=== PATIENT | male | born 1970 | race African-American/Black ===

== ENCOUNTER 2022-08-24 15:20 | Inpatient (IN) | payer OTHER ==
[2022-08-24 15:49] VITALS: BMI 25.0
[2022-08-24] MEDS ORDERED: BENZOCAINE/MENTHOL (CHLORASEPTIC ) LOZENGE MM PRN (17:59)
[2022-08-24] MEDS ORDERED: NICOTINE 10 MG CARTRIDGE (INHALER) IH PRN (17:59)
[2022-08-24] MEDS ORDERED: BISMUTH SUBSALICYLATE 524 MG/30 ML PO PRN (17:59)
[2022-08-24] MEDS ORDERED: LOPERAMIDE HCL 2 MG CAPSULE PO PRN (17:59)
[2022-08-24] MEDS ORDERED: DICYCLOMINE HCL 10 MG CAPSULE PO PRN (17:59)
[2022-08-24] MEDS ORDERED: ONDANSETRON *ODT* 4 MG TABLET SL PRN (17:59)
[2022-08-24] MEDS ORDERED: IBUPROFEN 600 MG TABLET (FP) PO PRN (17:59)
[2022-08-24] MEDS ORDERED: MAGNESIUM CITRATE 300 ML BOTTLE PO PRN (17:59)
[2022-08-24] MEDS ORDERED: IBUPROFEN 400 MG TABLET (FP) PO PRN (17:59)
[2022-08-24] MEDS ORDERED: MAG HYDROX/AL HYDROX/SIMETH 30 ML UNIT-DOSE CUP PO PRN (17:59)
[2022-08-24] MEDS ORDERED: ACETAMINOPHEN 325 MG TABLET (FP) PO PRN ×2 (17:59)
[2022-08-24] MEDS ORDERED: NALOXONE HCL (KLOXXADO) 8 MG SPRAY NS PRN (17:59)
[2022-08-24] MEDS ORDERED: MAGNESIUM HYDROX 2400MG/30ML ORAL SUSPENSION 30 ML CUP PO PRN (17:59)
[2022-08-24] MEDS: hydrOXYzine PAMOATE 25 MG CAPSULE (FP) PO PRN (18:45)
[2022-08-24] MEDS ORDERED: hydrOXYzine PAMOATE 25 MG CAPSULE (FP) PO ONE (18:47)
[2022-08-24] MEDS ORDERED: chlordiazePOXIDE HCL 25 MG CAPSULE ONE (18:49)
[2022-08-24] MEDS: chlordiazePOXIDE HCL 25 MG CAPSULE PO PRN (18:53)
[2022-08-24] MEDS ORDERED: amLODIPine BESYLATE 5 MG TABLET (FP) PO ONE (19:20)
[2022-08-24] MEDS ORDERED: INSULIN SLIDING SCALE (NOVOLOG) 1 VIAL SQ SCH (22:00)
[2022-08-24] MEDS ORDERED: MELATONIN 5 MG TABLETS PO SCH (22:00)
[2022-08-24] MEDS: THIAMINE HCL 100 MG TABLET (FP) PO SCH (22:34)
[2022-08-24] MEDS: levETIRAcetam 500 MG TABLET (FP) PO SCH (22:34)
[2022-08-24] MEDS: chlordiazePOXIDE HCL 25 MG CAPSULE PO SCH (22:36)
[2022-08-25] MEDS: chlordiazePOXIDE HCL 25 MG CAPSULE PO SCH ×4 (05:21→22:29)
[2022-08-25] MEDS: levETIRAcetam 500 MG TABLET (FP) PO SCH ×2 (10:05→22:29)
[2022-08-25] MEDS: PRENATAL VITAMINS W/ FOLIC ACID TABLET (FP) PO SCH (10:05)
[2022-08-25] MEDS: amLODIPine BESYLATE 5 MG TABLET (FP) PO SCH (10:06)
[2022-08-25 12:01] LABS: HEMATOCRIT 32.4 % (35.4-49); HEMOGLOBIN 10.7 GM/dL (11.7-16.9); MEAN CELL VOLUME 90.7 fl (80-96); PLATELET COUNT 134 10^3/uL (134-434); RBC 3.57 M/mm3 (4.00-5.60); RDW 15.2 % (11.9-15.9); WHITE BLOOD COUNT 4.3 K/mm3 (4.0-10.0)
[2022-08-25 12:09] LABS: ALBUMIN 3.6 g/dl (3.4-5.0); BLOOD UREA NITROGEN 6.4 mg/dL (7-18); CREATININE 0.7 mg/dL (0.55-1.3)
[2022-08-25 12:12] LABS: BILIRUBIN,TOTAL 0.4 mg/dL (0.2-1); TOT PROT 7.6 g/dl (6.4-8.2)
[2022-08-25] MEDS: hydrOXYzine PAMOATE 25 MG CAPSULE (FP) PO PRN (15:30)
[2022-08-25] MEDS: chlordiazePOXIDE HCL 25 MG CAPSULE PO PRN (15:30)
[2022-08-25] MEDS: THIAMINE HCL 100 MG TABLET (FP) PO SCH (22:28)
[2022-08-25] MEDS: SUVOREXANT 10 MG TABLET PO PRN (22:31)
[2022-08-26] MEDS: chlordiazePOXIDE HCL 25 MG CAPSULE PO SCH ×4 (05:22→22:16)
[2022-08-26] MEDS: PRENATAL VITAMINS W/ FOLIC ACID TABLET (FP) PO SCH (10:24)
[2022-08-26] MEDS: amLODIPine BESYLATE 5 MG TABLET (FP) PO SCH (10:25)
[2022-08-26] MEDS: levETIRAcetam 500 MG TABLET (FP) PO SCH ×2 (10:25→22:15)
[2022-08-26] MEDS: hydrOXYzine PAMOATE 25 MG CAPSULE (FP) PO PRN ×2 (14:26→22:17)
[2022-08-26] MEDS: chlordiazePOXIDE HCL 25 MG CAPSULE PO PRN (14:26)
[2022-08-26] MEDS: THIAMINE HCL 100 MG TABLET (FP) PO SCH (22:15)
[2022-08-27] MEDS ORDERED: chlordiazePOXIDE HCL 10 MG CAPSULE PO PRN
[2022-08-27] MEDS: chlordiazePOXIDE HCL 10 MG CAPSULE PO SCH ×4 (05:36→22:11)
[2022-08-27] MEDS: METHOCARBAMOL 500 MG TABLET PO PRN (10:03)
[2022-08-27] MEDS: hydrOXYzine PAMOATE 25 MG CAPSULE (FP) PO PRN ×2 (10:03→22:13)
[2022-08-27] MEDS: PRENATAL VITAMINS W/ FOLIC ACID TABLET (FP) PO SCH (10:03)
[2022-08-27] MEDS: levETIRAcetam 500 MG TABLET (FP) PO SCH ×2 (10:03→22:11)
[2022-08-27] MEDS: amLODIPine BESYLATE 5 MG TABLET (FP) PO SCH (10:04)
[2022-08-27] MEDS ORDERED: levETIRAcetam 250 MG TABLET PO ONE (20:55)
[2022-08-27] MEDS: THIAMINE HCL 100 MG TABLET (FP) PO SCH (22:12)
[2022-08-27] MEDS: SUVOREXANT 10 MG TABLET PO PRN (22:12)
[2022-08-28] MEDS: chlordiazePOXIDE HCL 10 MG CAPSULE PO SCH ×2 (05:36→17:14)
[2022-08-28] MEDS ORDERED: levETIRAcetam 250 MG TABLET PO ONE (09:30)
[2022-08-28] MEDS: PRENATAL VITAMINS W/ FOLIC ACID TABLET (FP) PO SCH (10:14)
[2022-08-28] MEDS: levETIRAcetam 500 MG TABLET (FP) PO SCH ×2 (10:15→21:52)
[2022-08-28] MEDS: METHOCARBAMOL 500 MG TABLET PO PRN (10:15)
[2022-08-28] MEDS: amLODIPine BESYLATE 5 MG TABLET (FP) PO SCH (10:15)
[2022-08-28] MEDS: hydrOXYzine PAMOATE 25 MG CAPSULE (FP) PO PRN (10:15)
[2022-08-28] MEDS: LACTULOSE 20 GM/30 ML UDC (FOR ORAL USE ONLY) PO SCH ×3 (13:47→21:52)
[2022-08-28] MEDS: THIAMINE HCL 100 MG TABLET (FP) PO SCH (21:52)
[2022-08-28] MEDS ORDERED: SUVOREXANT 10 MG TABLET PO PRN (22:00)
[2022-08-29] MEDS ORDERED: chlordiazePOXIDE HCL 10 MG CAPSULE PO ONE (05:00)
[2022-08-29 09:13] VITALS: TEMP 97.6
[2022-08-29] MEDS: LACTULOSE 20 GM/30 ML UDC (FOR ORAL USE ONLY) PO SCH (10:17)
[2022-08-29] MEDS: levETIRAcetam 500 MG TABLET (FP) PO SCH (10:18)
[2022-08-29] MEDS: METHOCARBAMOL 500 MG TABLET PO PRN (10:18)
[2022-08-29] MEDS: hydrOXYzine PAMOATE 25 MG CAPSULE (FP) PO PRN (10:18)
[2022-08-29] MEDS: amLODIPine BESYLATE 5 MG TABLET (FP) PO SCH (10:18)
[2022-08-29] MEDS: PRENATAL VITAMINS W/ FOLIC ACID TABLET (FP) PO SCH (10:18)
[2022-08-29 13:13] VITALS: BP 148/86; PULSE 115; RESP 18
== END 2022-08-29 13:32 | disposition other institution (70) | DRG 775 ==
LOC: YASAS 15:20 → Y6N 18:39
PROVIDERS: ADMIT Allergy & Immunology; ATTEND Surgery
PROC: HZ2ZZZZ Detoxification Services for Substance Abuse Treatment (ICD-10-PCS; principal; 2022-08-24)
DX: F10.230 Alcohol dependence with withdrawal, uncomplicated (principal); F10.282 Alcohol dependence with alcohol-induced sleep disorder; F41.9 Anxiety disorder, unspecified; F32.A Depression, unspecified; F43.10 Post-traumatic stress disorder, unspecified; G40.909 Epilepsy, unspecified, not intractable, without status epilepticus; I10 Essential (primary) hypertension; M54.50 Low back pain, unspecified; G89.29 Other chronic pain; R73.9 Hyperglycemia, unspecified; R79.89 Other specified abnormal findings of blood chemistry; R73.03 Prediabetes; Z87.891 Personal history of nicotine dependence
CPT/HCPCS: 36415; 80053; 82140; 82310; 82962; 84520; 85027; 86780; C9803-CS; U0003; U0005

== ENCOUNTER 2022-08-29 12:54 | Inpatient (IN) | payer OTHER ==
[2022-08-29] MEDS ORDERED: MAGNESIUM HYDROX 2400MG/30ML ORAL SUSPENSION 30 ML CUP PO PRN (15:45)
[2022-08-29] MEDS ORDERED: MAGNESIUM CITRATE 300 ML BOTTLE PO PRN (15:45)
[2022-08-29] MEDS ORDERED: BENZOCAINE/MENTHOL (CHLORASEPTIC ) LOZENGE MM PRN (15:45)
[2022-08-29] MEDS ORDERED: P-EPHED 60MG/TRIPROLIDI 2.5MG TABLET PO PRN (15:45)
[2022-08-29] MEDS ORDERED: MAG HYDROX/AL HYDROX/SIMETH 30 ML UNIT-DOSE CUP PO PRN (15:45)
[2022-08-29] MEDS ORDERED: ACETAMINOPHEN 325 MG TABLET (FP) PO PRN (15:45)
[2022-08-29] MEDS ORDERED: LOPERAMIDE HCL 2 MG CAPSULE PO PRN (15:45)
[2022-08-29] MEDS ORDERED: guaiFENesin 200 MG/10 ML 10 ML UNIT-DOSE CUPS PO PRN (15:45)
[2022-08-29] MEDS: LACTULOSE 20 GM/30 ML UDC (FOR ORAL USE ONLY) PO SCH ×2 (17:16→21:10)
[2022-08-29] MEDS: MELATONIN 5 MG TABLETS PO SCH (21:10)
[2022-08-29] MEDS: levETIRAcetam 250 MG TABLET PO SCH (21:10)
[2022-08-29] MEDS: THIAMINE HCL 100 MG TABLET (FP) PO SCH (21:10)
[2022-08-30 07:10] VITALS: RESP 18
[2022-08-30] MEDS: amLODIPine BESYLATE 5 MG TABLET (FP) PO SCH (09:44)
[2022-08-30] MEDS: FOLIC ACID 1 MG TABLET (FP) PO SCH (09:44)
[2022-08-30] MEDS: LACTULOSE 20 GM/30 ML UDC (FOR ORAL USE ONLY) PO SCH ×4 (09:44→21:33)
[2022-08-30] MEDS: THIAMINE HCL 100 MG TABLET (FP) PO SCH ×2 (09:44→21:32)
[2022-08-30] MEDS: levETIRAcetam 250 MG TABLET PO SCH ×2 (09:45→21:33)
[2022-08-30] MEDS: PRENATAL VITAMINS W/ FOLIC ACID TABLET (FP) PO SCH (09:45)
[2022-08-30] MEDS ORDERED: PNEUMOC 20-VAL CONJ-DIP CRM/PF 0.5 ML SYRINGE IM ONE (12:00)
[2022-08-30] MEDS: IBUPROFEN 400 MG TABLET (FP) PO PRN (12:46)
[2022-08-30] MEDS: MELATONIN 5 MG TABLETS PO SCH (21:32)
[2022-08-31] MEDS: FERROUS SO4 325 MG TABLET (FP) PO SCH (10:17)
[2022-08-31] MEDS: LACTULOSE 20 GM/30 ML UDC (FOR ORAL USE ONLY) PO SCH ×4 (10:17→21:52)
[2022-08-31] MEDS: PRENATAL VITAMINS W/ FOLIC ACID TABLET (FP) PO SCH (10:17)
[2022-08-31] MEDS: levETIRAcetam 250 MG TABLET PO SCH ×2 (10:17→21:51)
[2022-08-31] MEDS: FOLIC ACID 1 MG TABLET (FP) PO SCH (10:17)
[2022-08-31] MEDS: amLODIPine BESYLATE 5 MG TABLET (FP) PO SCH (10:18)
[2022-08-31] MEDS: THIAMINE HCL 100 MG TABLET (FP) PO SCH ×2 (10:18→21:52)
[2022-08-31] MEDS: IBUPROFEN 400 MG TABLET (FP) PO PRN (14:46)
[2022-08-31] MEDS: MELATONIN 5 MG TABLETS PO SCH (21:52)
[2022-09-01] MEDS: levETIRAcetam 250 MG TABLET PO SCH ×2 (10:25→21:30)
[2022-09-01] MEDS: PRENATAL VITAMINS W/ FOLIC ACID TABLET (FP) PO SCH (10:25)
[2022-09-01] MEDS: FERROUS SO4 325 MG TABLET (FP) PO SCH (10:25)
[2022-09-01] MEDS: THIAMINE HCL 100 MG TABLET (FP) PO SCH ×2 (10:25→21:30)
[2022-09-01] MEDS: FOLIC ACID 1 MG TABLET (FP) PO SCH (10:25)
[2022-09-01] MEDS: LACTULOSE 20 GM/30 ML UDC (FOR ORAL USE ONLY) PO SCH ×4 (10:25→21:30)
[2022-09-01] MEDS: amLODIPine BESYLATE 5 MG TABLET (FP) PO SCH (10:25)
[2022-09-01] MEDS: IBUPROFEN 400 MG TABLET (FP) PO PRN (18:02)
[2022-09-01] MEDS: MELATONIN 5 MG TABLETS PO SCH (21:30)
[2022-09-02] MEDS: PRENATAL VITAMINS W/ FOLIC ACID TABLET (FP) PO SCH (10:00)
[2022-09-02] MEDS: FOLIC ACID 1 MG TABLET (FP) PO SCH (10:00)
[2022-09-02] MEDS: LACTULOSE 20 GM/30 ML UDC (FOR ORAL USE ONLY) PO SCH ×4 (10:00→21:26)
[2022-09-02] MEDS: amLODIPine BESYLATE 5 MG TABLET (FP) PO SCH (10:00)
[2022-09-02] MEDS: FERROUS SO4 325 MG TABLET (FP) PO SCH (10:00)
[2022-09-02] MEDS: THIAMINE HCL 100 MG TABLET (FP) PO SCH ×2 (10:01→21:26)
[2022-09-02] MEDS: levETIRAcetam 250 MG TABLET PO SCH ×2 (10:01→21:26)
[2022-09-02] MEDS: MELATONIN 5 MG TABLETS PO SCH (21:26)
[2022-09-03] MEDS: FOLIC ACID 1 MG TABLET (FP) PO SCH (09:47)
[2022-09-03] MEDS: amLODIPine BESYLATE 5 MG TABLET (FP) PO SCH (09:47)
[2022-09-03] MEDS: LACTULOSE 20 GM/30 ML UDC (FOR ORAL USE ONLY) PO SCH ×4 (09:47→21:13)
[2022-09-03] MEDS: PRENATAL VITAMINS W/ FOLIC ACID TABLET (FP) PO SCH (09:47)
[2022-09-03] MEDS: FERROUS SO4 325 MG TABLET (FP) PO SCH (09:47)
[2022-09-03] MEDS: levETIRAcetam 250 MG TABLET PO SCH ×2 (09:48→21:13)
[2022-09-03] MEDS: THIAMINE HCL 100 MG TABLET (FP) PO SCH ×2 (09:49→21:13)
[2022-09-03] MEDS: MELATONIN 5 MG TABLETS PO SCH (21:13)
[2022-09-04] MEDS: FERROUS SO4 325 MG TABLET (FP) PO SCH (09:33)
[2022-09-04] MEDS: FOLIC ACID 1 MG TABLET (FP) PO SCH (09:33)
[2022-09-04] MEDS: amLODIPine BESYLATE 5 MG TABLET (FP) PO SCH (09:34)
[2022-09-04] MEDS: THIAMINE HCL 100 MG TABLET (FP) PO SCH ×2 (09:34→21:48)
[2022-09-04] MEDS: PRENATAL VITAMINS W/ FOLIC ACID TABLET (FP) PO SCH (09:34)
[2022-09-04] MEDS: levETIRAcetam 250 MG TABLET PO SCH ×2 (09:35→21:48)
[2022-09-04] MEDS: LACTULOSE 20 GM/30 ML UDC (FOR ORAL USE ONLY) PO SCH ×4 (09:35→21:48)
[2022-09-04 10:26] LABS: CALCIUM 9.9 mg/dL (8.5-10.1)
[2022-09-04 10:27] LABS: ALBUMIN 4.2 g/dl (3.4-5.0)
[2022-09-04 10:30] LABS: CREATININE 1.1 mg/dL (0.55-1.3)
[2022-09-04 10:32] LABS: BILIRUBIN,TOTAL 0.2 mg/dL (0.2-1); TOT PROT 8.5 g/dl (6.4-8.2)
[2022-09-04] MEDS: MELATONIN 5 MG TABLETS PO SCH (21:48)
[2022-09-04] MEDS: hydrOXYzine PAMOATE 25 MG CAPSULE (FP) PO PRN (21:49)
[2022-09-05] MEDS: PRENATAL VITAMINS W/ FOLIC ACID TABLET (FP) PO SCH (10:56)
[2022-09-05] MEDS: amLODIPine BESYLATE 5 MG TABLET (FP) PO SCH (10:56)
[2022-09-05] MEDS: FERROUS SO4 325 MG TABLET (FP) PO SCH (10:56)
[2022-09-05] MEDS: FOLIC ACID 1 MG TABLET (FP) PO SCH (10:56)
[2022-09-05] MEDS: THIAMINE HCL 100 MG TABLET (FP) PO SCH ×2 (10:57→21:12)
[2022-09-05] MEDS: LACTULOSE 20 GM/30 ML UDC (FOR ORAL USE ONLY) PO SCH ×4 (10:57→21:12)
[2022-09-05] MEDS: levETIRAcetam 250 MG TABLET PO SCH ×2 (10:57→21:12)
[2022-09-05] MEDS: hydrOXYzine PAMOATE 25 MG CAPSULE (FP) PO PRN (10:58)
[2022-09-05] MEDS: MELATONIN 5 MG TABLETS PO SCH (21:12)
[2022-09-06] MEDS: LACTULOSE 20 GM/30 ML UDC (FOR ORAL USE ONLY) PO SCH ×2 (09:54→14:47)
[2022-09-06] MEDS: FOLIC ACID 1 MG TABLET (FP) PO SCH (09:55)
[2022-09-06] MEDS: levETIRAcetam 250 MG TABLET PO SCH ×2 (09:55→21:22)
[2022-09-06] MEDS: THIAMINE HCL 100 MG TABLET (FP) PO SCH ×2 (09:56→21:22)
[2022-09-06] MEDS: amLODIPine BESYLATE 5 MG TABLET (FP) PO SCH (09:56)
[2022-09-06] MEDS: FERROUS SO4 325 MG TABLET (FP) PO SCH (09:56)
[2022-09-06] MEDS: PRENATAL VITAMINS W/ FOLIC ACID TABLET (FP) PO SCH (09:56)
[2022-09-06] MEDS: MELATONIN 5 MG TABLETS PO SCH (21:22)
[2022-09-07] MEDS: PRENATAL VITAMINS W/ FOLIC ACID TABLET (FP) PO SCH (09:50)
[2022-09-07] MEDS: THIAMINE HCL 100 MG TABLET (FP) PO SCH ×2 (09:51→21:24)
[2022-09-07] MEDS: FOLIC ACID 1 MG TABLET (FP) PO SCH (09:51)
[2022-09-07] MEDS: amLODIPine BESYLATE 5 MG TABLET (FP) PO SCH (09:51)
[2022-09-07] MEDS: levETIRAcetam 250 MG TABLET PO SCH ×2 (09:51→21:24)
[2022-09-07] MEDS: FERROUS SO4 325 MG TABLET (FP) PO SCH (09:51)
[2022-09-07] MEDS: MELATONIN 5 MG TABLETS PO SCH (21:24)
[2022-09-08] MEDS: FERROUS SO4 325 MG TABLET (FP) PO SCH (09:49)
[2022-09-08] MEDS: PRENATAL VITAMINS W/ FOLIC ACID TABLET (FP) PO SCH (09:49)
[2022-09-08] MEDS: levETIRAcetam 250 MG TABLET PO SCH ×2 (09:49→21:34)
[2022-09-08] MEDS: THIAMINE HCL 100 MG TABLET (FP) PO SCH ×2 (09:49→21:34)
[2022-09-08] MEDS: FOLIC ACID 1 MG TABLET (FP) PO SCH (09:49)
[2022-09-08] MEDS: amLODIPine BESYLATE 5 MG TABLET (FP) PO SCH (09:49)
[2022-09-08] MEDS: MELATONIN 5 MG TABLETS PO SCH (21:34)
[2022-09-08] MEDS: hydrOXYzine PAMOATE 25 MG CAPSULE (FP) PO PRN (21:35)
[2022-09-09] MEDS: THIAMINE HCL 100 MG TABLET (FP) PO SCH ×3 (10:00→21:12)
[2022-09-09] MEDS: PRENATAL VITAMINS W/ FOLIC ACID TABLET (FP) PO SCH (10:22)
[2022-09-09] MEDS: levETIRAcetam 250 MG TABLET PO SCH ×2 (10:23→21:12)
[2022-09-09] MEDS: FERROUS SO4 325 MG TABLET (FP) PO SCH (10:23)
[2022-09-09] MEDS: amLODIPine BESYLATE 5 MG TABLET (FP) PO SCH (10:23)
[2022-09-09] MEDS: FOLIC ACID 1 MG TABLET (FP) PO SCH (10:23)
[2022-09-09] MEDS: MELATONIN 5 MG TABLETS PO SCH (21:12)
[2022-09-10] MEDS: PRENATAL VITAMINS W/ FOLIC ACID TABLET (FP) PO SCH (10:21)
[2022-09-10] MEDS: levETIRAcetam 250 MG TABLET PO SCH ×2 (10:21→21:46)
[2022-09-10] MEDS: FOLIC ACID 1 MG TABLET (FP) PO SCH (10:22)
[2022-09-10] MEDS: THIAMINE HCL 100 MG TABLET (FP) PO SCH ×2 (10:22→21:45)
[2022-09-10] MEDS: FERROUS SO4 325 MG TABLET (FP) PO SCH (10:22)
[2022-09-10] MEDS: amLODIPine BESYLATE 5 MG TABLET (FP) PO SCH (10:22)
[2022-09-10] MEDS: MELATONIN 5 MG TABLETS PO SCH (21:45)
[2022-09-11] MEDS: FERROUS SO4 325 MG TABLET (FP) PO SCH (10:02)
[2022-09-11] MEDS: PRENATAL VITAMINS W/ FOLIC ACID TABLET (FP) PO SCH (10:02)
[2022-09-11] MEDS: FOLIC ACID 1 MG TABLET (FP) PO SCH (10:02)
[2022-09-11] MEDS: levETIRAcetam 250 MG TABLET PO SCH ×2 (10:02→21:08)
[2022-09-11] MEDS: amLODIPine BESYLATE 5 MG TABLET (FP) PO SCH (10:02)
[2022-09-11] MEDS: THIAMINE HCL 100 MG TABLET (FP) PO SCH ×2 (10:24→21:08)
[2022-09-11] MEDS: MELATONIN 5 MG TABLETS PO SCH (21:08)
[2022-09-12 07:28] VITALS: BP 120/82; PULSE 87; TEMP 97.7
== END 2022-09-12 07:30 | disposition home or self-care (01) | DRG 772 ==
LOC: YASAS 12:54 → Y3W 12:56
PROVIDERS: ADMIT Allergy & Immunology; ATTEND Psychiatry & Neurology Pain Medicine
PROC: HZ42ZZZ Group Counseling for Substance Abuse Treatment, Cognitive-Behavioral (ICD-10-PCS; principal; 2022-08-29)
DX: F10.20 Alcohol dependence, uncomplicated (principal); F41.9 Anxiety disorder, unspecified; F32.A Depression, unspecified; G40.909 Epilepsy, unspecified, not intractable, without status epilepticus; I10 Essential (primary) hypertension; M54.2 Cervicalgia; M54.50 Low back pain, unspecified; R79.89 Other specified abnormal findings of blood chemistry; R73.03 Prediabetes; Z87.891 Personal history of nicotine dependence
CPT/HCPCS: 36415; 80053; 82140; 82962; 90677